=== PATIENT | female | born 1940 | race Caucasian/White ===

== ENCOUNTER 2024-06-06 12:29 | Inpatient (IN) ==
[2024-06-06] MEDS ORDERED: IOPAMIDOL 100 ML BOTTLE IV ONE (12:30)
[2024-06-06 14:01] LABS: Basophils # (Auto) 0 K/mcL (0.00-0.30); Basophils % (Auto) 0 % (0.0-2.0); Eosinophils # (Auto) 0.04 K/mcL (0.00-0.70); Eosinophils % (Auto) 0.4 % (0.0-7.0); Hematocrit 36.7 % (34.1-44.9); Hemoglobin 12.2 g/dL (11.2-15.7); Lymphocytes # (Auto) 1.87 K/mcL (1.50-4.80); Lymphocytes % (Auto) 20.1 % (15.5-49.0); Mean Cell Volume 99.5 fL (80.0-100.0); Mean Corpuscular HGB Conc 33.2 g/dL (31.0-36.0); Mean Platelet Volume 9.4 fL (8.8-12.5); Monocytes # (Auto) 0.47 K/mcL (0.10-0.90); Neutrophils % (Auto) 74.3 % (38.0-78.0); Platelet Count 420 K/mcL (140-440); RBC 3.69 M/mcL (3.59-5.38); Red Cell Distribution Width 14.1 % (11.5-14.5); WBC 9.3 K/mcL (4.5-11.0)
[2024-06-06] MEDS: 0.9 % SODIUM CHLORIDE 500 ML IV ONE (14:05)
[2024-06-06] MEDS: fentaNYL 100 MCG/2 ML VIAL IV ONE (14:05)
[2024-06-06 14:41] LABS: Free T4 (Free Thyroxine) 1.33 ng/dL (0.93-1.70)
[2024-06-06 14:43] LABS: ALT/SGPT 15 U/L (<40); AST/SGOT 68 U/L (<32); Albumin/Globulin Ratio 1.1 (1.0-2.3); Alkaline Phosphatase 158 U/L (39-117); Bilirubin,Total 0.4 mg/dL (0.1-1.0); Blood Urea Nitrogen 65 mg/dL (8-23); Carbon Dioxide 27 mmol/L (22-30); Chloride 98 mmol/L (96-108); Globulin 3.5 gm/dL (2.2-3.7); Glomerular Filtration Rate 38; Glucose 109 mg/dL (70-105); Potassium 3.3 mmol/L (3.3-5.1); Sodium 144 mmol/L (133-145)
[2024-06-06] MEDS: 0.9 % SODIUM CHLORIDE 1,000 ML IV ONE (15:16)
[2024-06-06 15:46] LABS: Alcohol, Blood < 10.1 mg/dL; Alcohol,Blood < 0.010 gm/dL (<0.010)
[2024-06-06 15:47] LABS: Phosphorous 3.4 mg/dL (2.5-4.5)
[2024-06-06 18:26] LABS: ALT/SGPT 14 U/L (<40); AST/SGOT 65 U/L (<32); Albumin 3.7 gm/dL (3.2-5.2); Albumin/Globulin Ratio 1.2 (1.0-2.3); Alkaline Phosphatase 147 U/L (39-117); Bilirubin,Total 0.4 mg/dL (0.1-1.0); Blood Urea Nitrogen 63 mg/dL (8-23); Calcium 14.6 mg/dL (8.6-10.4); Carbon Dioxide 28 mmol/L (22-30); Chloride 102 mmol/L (96-108); Globulin 3.2 gm/dL (2.2-3.7); Glomerular Filtration Rate 41; Glucose 93 mg/dL (70-105); Potassium 3.1 mmol/L (3.3-5.1); Sodium 144 mmol/L (133-145)
[2024-06-06] MEDS ORDERED: ACETAMINOPHEN 325 MG TABLET PO PRN (19:06)
[2024-06-06] MEDS ORDERED: SENNOSIDES 1 TABLET PO PRN (19:06)
[2024-06-06] MEDS ORDERED: NALOXONE HCL 0.4 MG/ML VIAL IV PRN (19:06)
[2024-06-06] MEDS: 0.9 % SODIUM CHLORIDE 1,000 ML IV SCH ×2 (19:31→22:43)
[2024-06-06] MEDS: 0.9 % SODIUM CHLORIDE 10 ML SYRINGE IV SCH (19:31)
[2024-06-06] MEDS: morphine 2 MG/ML VIAL IV PRN (19:34)
[2024-06-06] MEDS: CALCITONIN 400 UNIT/2 ML VIAL IM SCH (20:29)
[2024-06-06] MEDS: ZOLEDRONIC AC/MANNITOL/0.9NACL 4 MG/100 ML PIGGYBACK IV ONE (20:30)
[2024-06-06 20:48] LABS: Appearance,Urine CLEAR (Clear); Bilirubin,Urine Negative (Negative); Color,Urine YELLOW; Glucose,Urine (UA) Negative (Negative); Ketones,Urine Negative (Negative); Leukocyte Esterase,Urine 25 /uL (Negative); Mucus,Urine FEW /hpf; Nitrate,Urine Negative (Negative); Protein,Urine Negative (Negative); Specific Gravity,Urine 1.021 (1.000-1.035); Urine Blood Negative (Negative); Urine Hyaline Cast 2 /lph (0-2); Urine RBC 1 /hpf (0-3); Urine Squamous Epithelial Cell 1 /hpf (0-4); Urine Transitional Epi Cells < 1 /hpf (0-2); Urine WBC 11 /hpf (0-4); Urobilinogen,Urine Negative
[2024-06-06] MEDS: HEPARIN 5,000 UNIT/ML VIAL SQ SCH (21:22)
[2024-06-06] MEDS: VITAMIN D3 10 MCG TABLET PO SCH (21:23)
[2024-06-06] MEDS: DOCUSATE SODIUM 100 MG CAPSULE PO SCH (21:23)
[2024-06-06 23:59] LABS: ALT/SGPT 15 U/L (<40); AST/SGOT 69 U/L (<32); Albumin 3.6 gm/dL (3.2-5.2); Albumin/Globulin Ratio 1.2 (1.0-2.3); Alkaline Phosphatase 151 U/L (39-117); Bilirubin,Total 0.3 mg/dL (0.1-1.0); Blood Urea Nitrogen 61 mg/dL (8-23); Calcium 14.4 mg/dL (8.6-10.4); Carbon Dioxide 27 mmol/L (22-30); Chloride 104 mmol/L (96-108); Glomerular Filtration Rate 46; Glucose 101 mg/dL (70-105); Sodium 144 mmol/L (133-145)
[2024-06-07 06:12] LABS: Basophils # (Auto) 0 K/mcL (0.00-0.30); Basophils % (Auto) 0 % (0.0-2.0); Eosinophils # (Auto) 0.01 K/mcL (0.00-0.70); Eosinophils % (Auto) 0.1 % (0.0-7.0); Hematocrit 32.2 % (34.1-44.9); Hemoglobin 10.4 g/dL (11.2-15.7); Lymphocytes # (Auto) 1.09 K/mcL (1.50-4.80); Lymphocytes % (Auto) 12.5 % (15.5-49.0); Mean Cell Volume 102.5 fL (80.0-100.0); Mean Corpuscular HGB Conc 32.3 g/dL (31.0-36.0); Monocytes # (Auto) 0.47 K/mcL (0.10-0.90); Monocytes % (Auto) 5.4 % (1.0-12.0); Neutrophils % (Auto) 81.7 % (38.0-78.0); Platelet Count 355 K/mcL (140-440); RBC 3.14 M/mcL (3.59-5.38); Red Cell Distribution Width 14.6 % (11.5-14.5); WBC 8.7 K/mcL (4.5-11.0)
[2024-06-07 09:19] LABS: ALT/SGPT 15 U/L (<40); AST/SGOT 64 U/L (<32); Albumin 3.1 gm/dL (3.2-5.2); Alkaline Phosphatase 141 U/L (39-117); Bilirubin,Direct < 0.2 mg/dL (0-0.3); Bilirubin,Total 0.3 mg/dL (0.1-1.0); Blood Urea Nitrogen 58 mg/dL (8-23); Calcium 13.3 mg/dL (8.6-10.4); Carbon Dioxide 26 mmol/L (22-30); Chloride 108 mmol/L (96-108); Globulin 3.2 gm/dL (2.2-3.7); Glomerular Filtration Rate 46; Glucose 98 mg/dL (70-105); Lactate Dehydrogenase 407 U/L (135-225); Phosphorous 2.9 mg/dL (2.5-4.5); Potassium 2.8 mmol/L (3.3-5.1); Sodium 145 mmol/L (133-145); Triglycerides 144 mg/dL (<150); Uric Acid 5.6 mg/dL (2.5-8.0)
[2024-06-07] MEDS: POTASSIUM CHLORIDE 20 MEQ PACKET PO ONE (09:46)
[2024-06-07] MEDS: CALCITONIN 400 UNIT/2 ML VIAL IM ONE ×2 (10:00→21:18)
[2024-06-07] MEDS: POTASSIUM CHLORIDE 10 MEQ/100 ML BAG IV SCH (10:01)
[2024-06-07] MEDS: ONDANSETRON 4 MG/2 ML VIAL IV PRN (10:01)
[2024-06-07] MEDS: POTASSIUM CHLORIDE 40 MEQ in DEXTROSE 5% IN WATER 500 ML IV ONE (10:26)
[2024-06-07 12:38] LABS: ALT/SGPT 16 U/L (<40); AST/SGOT 74 U/L (<32); Albumin 3.3 gm/dL (3.2-5.2); Alkaline Phosphatase 152 U/L (39-117); Bilirubin,Total 0.3 mg/dL (0.1-1.0); Blood Urea Nitrogen 54 mg/dL (8-23); Calcium 12.8 mg/dL (8.6-10.4); Carbon Dioxide 26 mmol/L (22-30); Chloride 110 mmol/L (96-108); Globulin 3.4 gm/dL (2.2-3.7); Glomerular Filtration Rate 52; Glucose 115 mg/dL (70-105); Potassium 3.9 mmol/L (3.3-5.1); Sodium 146 mmol/L (133-145)
[2024-06-07] MEDS: 0.9 % SODIUM CHLORIDE 1,000 ML IV SCH ×2 (13:21→19:24)
[2024-06-07] MEDS ORDERED: LORazepam 2 MG/ML VIAL IV PRN (18:28)
[2024-06-07 18:55] LABS: ALT/SGPT 18 U/L (<40); AST/SGOT 72 U/L (<32); Albumin 3.3 gm/dL (3.2-5.2); Albumin/Globulin Ratio 1.1 (1.0-2.3); Alkaline Phosphatase 148 U/L (39-117); Bilirubin,Total 0.2 mg/dL (0.1-1.0); Blood Urea Nitrogen 51 mg/dL (8-23); Calcium 12.3 mg/dL (8.6-10.4); Carbon Dioxide 26 mmol/L (22-30); Chloride 113 mmol/L (96-108); Globulin 2.9 gm/dL (2.2-3.7); Glomerular Filtration Rate 52; Glucose 110 mg/dL (70-105); Sodium 149 mmol/L (133-145)
[2024-06-07] MEDS: FUROSEMIDE 40 MG/4 ML VIAL IV ONE (19:35)
[2024-06-07] MEDS: FUROSEMIDE 20 MG/2 ML VIAL IV ONE (19:55)
[2024-06-07] MEDS: HYDROCHLOROTHIAZIDE 12.5 MG CAPSULE PO ONE (21:39)
[2024-06-07 22:39] LABS: ALT/SGPT 18 U/L (<40); AST/SGOT 73 U/L (<32); Albumin 3.2 gm/dL (3.2-5.2); Alkaline Phosphatase 149 U/L (39-117); Bilirubin,Total 0.3 mg/dL (0.1-1.0); Blood Urea Nitrogen 48 mg/dL (8-23); Calcium 12.1 mg/dL (8.6-10.4); Carbon Dioxide 26 mmol/L (22-30); Chloride 113 mmol/L (96-108); Globulin 3.1 gm/dL (2.2-3.7); Glomerular Filtration Rate 52; Glucose 104 mg/dL (70-105); Potassium 3.6 mmol/L (3.3-5.1); Sodium 149 mmol/L (133-145)
[2024-06-08 06:40] LABS: Basophils # (Auto) 0.01 K/mcL (0.00-0.30); Basophils % (Auto) 0.1 % (0.0-2.0); Eosinophils # (Auto) 0.05 K/mcL (0.00-0.70); Eosinophils % (Auto) 0.5 % (0.0-7.0); Hematocrit 32.1 % (34.1-44.9); Hemoglobin 10.1 g/dL (11.2-15.7); Lymphocytes # (Auto) 1.13 K/mcL (1.50-4.80); Lymphocytes % (Auto) 10.7 % (15.5-49.0); Mean Cell Volume 105.2 fL (80.0-100.0); Mean Corpuscular HGB Conc 31.5 g/dL (31.0-36.0); Mean Platelet Volume 9.5 fL (8.8-12.5); Monocytes # (Auto) 0.53 K/mcL (0.10-0.90); Neutrophils % (Auto) 83.2 % (38.0-78.0); Platelet Count 332 K/mcL (140-440); RBC 3.05 M/mcL (3.59-5.38); Red Cell Distribution Width 14.8 % (11.5-14.5); WBC 10.6 K/mcL (4.5-11.0)
[2024-06-08] MEDS: FUROSEMIDE 20 MG/2 ML VIAL IV SCH (07:09)
[2024-06-08 07:15] LABS: ALT/SGPT 18 U/L (<40); AST/SGOT 70 U/L (<32); Albumin 3.1 gm/dL (3.2-5.2); Alkaline Phosphatase 144 U/L (39-117); Bilirubin,Direct < 0.2 mg/dL (0-0.3); Bilirubin,Total 0.3 mg/dL (0.1-1.0); Blood Urea Nitrogen 44 mg/dL (8-23); Calcium 11.6 mg/dL (8.6-10.4); Carbon Dioxide 25 mmol/L (22-30); Chloride 112 mmol/L (96-108); Globulin 3.1 gm/dL (2.2-3.7); Glomerular Filtration Rate 59; Glucose 86 mg/dL (70-105); Lactate Dehydrogenase 450 U/L (135-225); Phosphorous 1.5 mg/dL (2.5-4.5); Potassium 3.3 mmol/L (3.3-5.1); Sodium 149 mmol/L (133-145); Triglycerides 136 mg/dL (<150); Uric Acid 4.7 mg/dL (2.5-8.0)
[2024-06-08] MEDS: SODIUM CHLORIDE 154 MEQ in WATER FOR INJECTION,STERILE 961.5 ML IV SCH (08:19)
[2024-06-08] MEDS: MAGNESIUM SULFATE 2 GM/50 ML BAG IV SCH (10:36)
[2024-06-08 10:53] LABS: ALT/SGPT 17 U/L (<40); AST/SGOT 71 U/L (<32); Albumin 3.2 gm/dL (3.2-5.2); Albumin/Globulin Ratio 1.1 (1.0-2.3); Alkaline Phosphatase 150 U/L (39-117); Bilirubin,Total 0.3 mg/dL (0.1-1.0); Blood Urea Nitrogen 41 mg/dL (8-23); Calcium 11.4 mg/dL (8.6-10.4); Carbon Dioxide 25 mmol/L (22-30); Chloride 111 mmol/L (96-108); Glomerular Filtration Rate 59; Glucose 90 mg/dL (70-105); Sodium 149 mmol/L (133-145)
[2024-06-08] MEDS: POTASSIUM PHOSPHATE 40 MEQ in DEXTROSE 5% IN WATER 500 ML IV SCH (10:57)
[2024-06-08] MEDS: CALCITONIN 400 UNIT/2 ML VIAL IM SCH (12:30)
[2024-06-08] MEDS: POTASSIUM CHLORIDE 10 MEQ/100 ML BAG IV SCH ×2 (15:18→21:07)
[2024-06-08 19:37] LABS: ALT/SGPT 20 U/L (<40); AST/SGOT 72 U/L (<32); Albumin 3.3 gm/dL (3.2-5.2); Albumin/Globulin Ratio 1.1 (1.0-2.3); Alkaline Phosphatase 158 U/L (39-117); Bilirubin,Total 0.3 mg/dL (0.1-1.0); Blood Urea Nitrogen 36 mg/dL (8-23); Calcium 10.7 mg/dL (8.6-10.4); Carbon Dioxide 25 mmol/L (22-30); Chloride 110 mmol/L (96-108); Glomerular Filtration Rate 68; Glucose 98 mg/dL (70-105); Phosphorous 2.3 mg/dL (2.5-4.5); Potassium 3.3 mmol/L (3.3-5.1); Sodium 148 mmol/L (133-145)
[2024-06-08] MEDS: FUROSEMIDE 40 MG/4 ML VIAL IV SCH (21:06)
[2024-06-08] MEDS: 0.9 % SODIUM CHLORIDE 500 ML IV ONE (21:07)
[2024-06-08] MEDS: MAGNESIUM SULFATE 1 GM/100 ML BAG IV SCH (22:09)
[2024-06-08] MEDS: MAGNESIUM SULFATE 8.12 MEQ/2 ML VIAL ONE (22:12)
[2024-06-08] MEDS: POTASSIUM PHOSPHATE 66 MEQ/15 ML VIAL IV ONE (22:12)
[2024-06-08] MEDS: POTASSIUM CHLORIDE 20 MEQ/10 ML VIAL IV ONE (22:12)
[2024-06-09] MEDS: POTASSIUM PHOSPHATE 40 MEQ in 0.9 % SODIUM CHLORIDE 500 ML IV SCH (00:07)
[2024-06-09 00:44] LABS: ALT/SGPT 18 U/L (<40); AST/SGOT 69 U/L (<32); Albumin 3.1 gm/dL (3.2-5.2); Alkaline Phosphatase 151 U/L (39-117); Bilirubin,Total 0.3 mg/dL (0.1-1.0); Blood Urea Nitrogen 35 mg/dL (8-23); Calcium 10.1 mg/dL (8.6-10.4); Carbon Dioxide 24 mmol/L (22-30); Chloride 113 mmol/L (96-108); Globulin 3.1 gm/dL (2.2-3.7); Glomerular Filtration Rate 68; Glucose 94 mg/dL (70-105); Potassium 3.3 mmol/L (3.3-5.1); Sodium 149 mmol/L (133-145)
[2024-06-09] MEDS: 0.45 % SODIUM CHLORIDE 1,000 ML IV SCH ×2 (01:00→07:19)
[2024-06-09 06:21] LABS: Basophils # (Auto) 0 K/mcL (0.00-0.30); Basophils % (Auto) 0 % (0.0-2.0); Eosinophils # (Auto) 0.01 K/mcL (0.00-0.70); Eosinophils % (Auto) 0.1 % (0.0-7.0); Hematocrit 33.6 % (34.1-44.9); Hemoglobin 10.9 g/dL (11.2-15.7); Lymphocytes # (Auto) 0.92 K/mcL (1.50-4.80); Lymphocytes % (Auto) 8.7 % (15.5-49.0); Mean Cell Volume 101.8 fL (80.0-100.0); Mean Corpuscular HGB Conc 32.4 g/dL (31.0-36.0); Mean Platelet Volume 9.4 fL (8.8-12.5); Monocytes # (Auto) 0.41 K/mcL (0.10-0.90); Monocytes % (Auto) 3.9 % (1.0-12.0); Neutrophils % (Auto) 86.9 % (38.0-78.0); Platelet Count 327 K/mcL (140-440); Red Cell Distribution Width 14.9 % (11.5-14.5); WBC 10.6 K/mcL (4.5-11.0)
[2024-06-09] MEDS: DEXTROSE 5%-1/2NS W/20MEQ KCL 1,000 ML IV SCH ×2 (07:14→08:25)
[2024-06-09 07:23] LABS: ALT/SGPT 18 U/L (<40); AST/SGOT 66 U/L (<32); Albumin 3.1 gm/dL (3.2-5.2); Alkaline Phosphatase 150 U/L (39-117); Bilirubin,Direct < 0.2 mg/dL (0-0.3); Bilirubin,Total 0.3 mg/dL (0.1-1.0); Blood Urea Nitrogen 34 mg/dL (8-23); Calcium 9.6 mg/dL (8.6-10.4); Carbon Dioxide 23 mmol/L (22-30); Chloride 114 mmol/L (96-108); Globulin 3.1 gm/dL (2.2-3.7); Glomerular Filtration Rate 68; Glucose 90 mg/dL (70-105); Lactate Dehydrogenase 515 U/L (135-225); Phosphorous 4.4 mg/dL (2.5-4.5); Potassium 3.8 mmol/L (3.3-5.1); Sodium 150 mmol/L (133-145); Triglycerides 126 mg/dL (<150); Uric Acid 3.5 mg/dL (2.5-8.0)
[2024-06-09] MEDS: DEXTROSE 5% IN WATER 1,000 ML IV SCH (08:37)
[2024-06-09 09:28] LABS: Sodium 150 mmol/L (133-145)
[2024-06-09 10:47] LABS: Sodium 151 mmol/L (133-145)
== END 2024-06-09 14:35 | disposition hospice, inpatient (51) | DRG 640 ==
LOC: ED 12:29 → ICU 19:00
PROVIDERS: ADMIT Student in an Organized Health Care Education/Training Program; ATTEND Student in an Organized Health Care Education/Training Program